=== PATIENT | female | born 1955 | race Caucasian/White ===

== ENCOUNTER → 2022-07-22 13:08 | Outpatient (CLI) | payer MEDICARE, SELFPAY | PROVIDERS: PCP Internal Medicine; Visit Provider Internal Medicine | DX: U07.1 COVID-19 (principal) | CPT/HCPCS: C9803; U0003; U0005 ==

== ENCOUNTER → 2023-04-29 16:55 | Outpatient (CLI) | payer MEDICARE, SELFPAY ==
[2023-04-29 20:01] LABS: Erythrocyte Sedimentation Rate 26 mm/hr (0-30)
[2023-04-29 20:03] LABS: Basophils % 0.5 % (0.1-2.0); Eosinophils # 0.2 K/mm3 (0.0-0.4); Eosinophils % 2.8 % (0.1-12.0); Hematocrit 39.8 % (37.0-47.0); Hemoglobin 12.7 g/dL (12.2-16.2); Lymphocytes # 3.1 K/mm3 (0.7-4.5); Mean Corpuscular HGB Conc 31.8 g/dL (31.8-35.4); Mean Corpuscular Hemoglobin 28.6 pg (27.0-31.2); Mean Corpuscular Volume 89.8 fl (81-99); Mean Platelet Volume 7.6 fl (7.4-10.4); Monocytes # 0.4 K/mm3 (0.1-1.0); Monocytes % 5.4 % (1.7-9.3); Neutrophils # 4.2 K/mm3 (1.8-7.8); Neutrophils % 52.3 % (37.0-80.0); Platelet Count 436 K/mm3 (142-424); Red Blood Count 4.43 M/mm3 (4.20-5.40)
[2023-04-29 20:32] LABS: Alanine Aminotransferase 43 U/L (12-78); Albumin Level 4.5 g/dl (3.5-5.0); Albumin/Globulin Ratio 1.6 (1.1-1.8); Alkaline Phosphatase 121 U/L (38-126); Anion Gap 16.2 mEq/L (5-15); Aspartate Amino Transferase 28 U/L (14-36); Bilirubin,Total 0.5 mg/dl (0.2-1.3); Blood Urea Nitrogen 16 mg/dl (7-17); Calcium 9.7 mg/dl (8.4-10.2); Carbon Dioxide 27 mmol/L (22.0-30.0); Chloride 103 mmol/L (98-107); Chol/HDL Ratio 4.9 (1-3.5); Cholesterol 306 mg/dl (140-200); Estimated Glomerular Filt Rate 71 ml/min (>60); GFR (African American) 86 ML/MIN (>60); Globulin 2.9 g/dL (1.3-3.2); Glucose 111 mg/dl (74-100); HDL Cholesterol 62 mg/dl (40-60); Potassium 5.2 mmoL/L (3.5-5.1); Sodium 141 mmol/L (136-145); Total Protein,Serum 7.4 g/dl (6.3-8.2); Triglycerides 211 mg/dl (30-150); VLDL Cholesterol 42 mg/dL (0-40)
[2023-04-29 20:43] LABS: Direct LDL Cholesterol 175.26 mg/dL (100-129)
== END ==
PROVIDERS: PCP Internal Medicine; Visit Provider Internal Medicine
DX: R03.0 Elevated blood-pressure reading, without diagnosis of hypertension (principal); Z00.00 Encounter for general adult medical examination without abnormal findings; M15.0 Primary generalized (osteo)arthritis; M79.7 Fibromyalgia; E78.2 Mixed hyperlipidemia
CPT/HCPCS: 80053; 80061; 85025; 85651

== ENCOUNTER → 2023-06-02 09:47 | Outpatient (CLI) | payer MEDICARE, SELFPAY ==
--- NOTE | 2023-06-02 09:51 | MM_ITS ---
PROCEDURE INFORMATION: Exam: MG Bilateral Screening 3D Mammography Exam date and time: 06/02/2023 9:43 AM Age: 67 years old Clinical indication: Screening. A cousin had breast cancer. TECHNIQUE: Imaging protocol: Bilateral Screening tomosynthesis and 2D mammography including computer-aided detection (CAD) when performed. COMPARISON: No relevant prior studies available.If prior mammograms are provided, I am happy to add an addendum. FINDINGS: MAMMOGRAPHY: Breast composition: There are scattered areas of fibroglandular density. Mass: No suspicious mass. Architectural distortion: None. Calcifications: No suspicious calcifications. Asymmetric density: None. Skin thickening: None. Axillary adenopathy: None. IMPRESSION: No mammographic evidence of malignancy. Annual screening is recommended unless otherwise clinically indicated. ASSESSMENT: BI-RADS Category 1: Negative
--- NOTE | 2023-06-02 10:29 | XR_ITS ---
FINAL REPORT TECHNIQUE: Bone densitometry calculations of the lumbar spine and left hip were obtained. CLINICAL HISTORY: SCREENING patient states she had a fusion , L4 looked small so did a wrist also FINDINGS: Using L1-4, the bone mineral density of the spine is 0.854 g/cm2, corresponding to T-score of -1.8. Using the left hip, the bone mineral density of the femoral neck is 0.525 g/cm2, corresponding to a T-score of -2.9. Using the right hip, the bone mineral density of the femoral neck is 0.615 g/cm2, corresponding to a T-score of -2.1. Using the 1/3 radius, the bone mineral density of the radius is 0.467 g/cm2, corresponding to a T-score of -3.8. NOTE: T-score: Standard deviation compared with peak bone mass of young adult mean. *Following the recommendations of the International Society of Bone densitometry, classification of hip BMD is based on the lower of two T-scores; total hip or femoral neck. IMPRESSION: Diminished bone mineral density consistent with osteopenia in the right hip and lumbar spine. Diminished bone mineral density consistent with osteoporosis in the 1/3 radius and left hip. FRAX was not reported because some of the T-scores are at or below-2.5. Reviewed, Interpreted and Dictated by Wojciech Anne MD Transcribed by Lexis Valencia Authenticated and [facility]
== END ==
PROVIDERS: PCP Internal Medicine; Visit Provider Internal Medicine
DX: Z12.31 Encounter for screening mammogram for malignant neoplasm of breast (principal); Z78.0 Asymptomatic menopausal state
CPT/HCPCS: 77063; 77067; 77080

== ENCOUNTER → 2023-06-10 16:12 | Outpatient (CLI) | payer MEDICARE, SELFPAY ==
--- NOTE | 2023-06-10 16:19 | XR_ITS ---
FINAL REPORT CLINICAL HISTORY: lt lower leg pain, osteoporosis FINDINGS: LEFT KNEE 3 views of the left knee were obtained. There is no acute fracture or dislocation. Visualized joint spaces are normally aligned. Soft tissues are unremarkable. There is an osteophyte projecting from the superior pole of the patella. There is a tiny exostosis on the anterior surface of the proximal tibial diaphysis. IMPRESSION: No acute bony abnormality. Reviewed, Interpreted and Dictated by Wojciech Anne MD Transcribed by Selin Broussard Authenticated and [facility]
--- NOTE | 2023-06-10 16:19 | XR_ITS ---
FINAL REPORT CLINICAL HISTORY: lt lower leg pain, osteoporosis COMPARISON: None FINDINGS: LEFT TIBIA FIBULA: There is no acute fracture or dislocation. The joint spaces are intact. There is no soft tissue abnormality. There is a healed fracture deformity of the proximal fibula. There is an orthopedic plate and screws bridging a remote fracture of the distal tibia. IMPRESSION: No acute fracture Reviewed, Interpreted and Dictated by Wojciech Anne MD Transcribed by Selin Broussard Authenticated and [facility]
--- NOTE | 2023-06-10 16:19 | XR_ITS ---
FINAL REPORT CLINICAL HISTORY: LOWER LEG PAIN, osteoporosis FINDINGS: LEFT ANKLE Three views demonstrate no acute fracture or dislocation. The visualized joint spaces are normally aligned. The soft tissues are unremarkable. There are screws in an orthopedic plate bridging a remote fracture of the distal tibia. There is a well-corticated density adjacent to the lateral malleolus that likely represents a remote fracture deformity. IMPRESSION: No acute bony abnormality. Reviewed, Interpreted and Dictated by Wojciech Anne MD Transcribed by Selin Broussard Authenticated and [facility]
== END ==
PROVIDERS: PCP Internal Medicine; Visit Provider Internal Medicine
DX: M25.562 Pain in left knee (principal); M79.662 Pain in left lower leg; M25.572 Pain in left ankle and joints of left foot; M81.0 Age-related osteoporosis without current pathological fracture
CPT/HCPCS: 73562; 73590; 73610

== ENCOUNTER 2023-07-21 08:23 | Day surgery (SDC) | payer MEDICARE, SELFPAY ==
[2023-07-20 13:05] VITALS: BMI 26.1
[2023-07-21 08:44] VITALS: BP 196/99; PULSE 88; RESP 16; TEMP 36.6; O2SAT 98
--- NOTE | 2023-07-21 08:58 | EXP.ANES.CKL ---
[facility] Disclaimer: The information contained in this section may have been updated after the patient was seen, as this information can be updated by other users. Medical History History of lower leg fracture Surgical History History of laminectomy History of tonsillectomy Family History Other No significant family history Social History (Updated 07/21/23 @ 08:43 by Connie Larios RN) Smoking Status: Never smoker alcohol intake: never substance use type: denies use current occupational status: retired and disabled Travel in the last 8 weeks: None [facility] Anesthesia Checklist Patient Identification Patient Identification: Arm Band Structural Data Admitted From: Home Planned Operative Procedure/s: colonoscopy Consent for Planned Operative Procedure(s) Verified: Yes Verified Documents: Surgical Consent and History and Physical NPO Status Verified Time NPO: 00:00 Additional verifications Anesthesia Reactions: No Airway Assessment Mallampati Score:: Class II C-Spine Mobility Assessed: Yes TMJ Mobility Assessed: Yes Dentition: Good Dentition Neurological Assessment Level of Consciousness: Awake and Alert Anesthesia Plan Anesthesia Risk discussed: Yes Anesthesia Plan: Verified ASA Class: II Anesthesia Type: MAC
[2023-07-21 09:00] VITALS: O2SAT 98
--- NOTE | 2023-07-21 09:42 | HMH.SCOPE ---
Procedure: Date: 07/21/23 Patient Date of :: 1955 Procedure Performed:: Colonoscopy with polypectomy Indications:: History of colon polyps Performing Provider:: Itz Clifford MD Referring Provider:: Dr. Cabrera Sedation:: Monitored anesthesia care Procedure:: After informed consent was obtained the patient was taken to the endoscopy suite. Sedation ensued after the patient was transferred to the left lateral decubitus position. Pulse, blood pressure, and oxygen saturation were monitored throughout the procedure. Digital rectal exam revealed no significant abnormality. The colonoscope was placed in position. The entire colon was evaluated. The colonoscope was carefully removed and the patient was transferred to recovery in stable condition. Please see findings and specimens below for detail. Findings:: Bowel preparation moderate Significant tortuosity Fairly profound spasticity/lack of relaxation (particularly within sigmoid colon) Polyps (see specimens) Specimens:: Hepatic flexure polyp (hot snare) Polyp at 20 cm (cold biopsy forceps) Recommendations:: Timing of repeat colonoscopy is pending pathology but likely be around 1-2 years with extended bowel preparation. Consider barium enema secondary to profound spasticity/lack of relaxation. Complications:: No immediate Estimated blood obtained (mL): 1 Colonoscopy Component Colonoscopy Component Was a colonoscopy performed during today's procedure?: Yes Recommended follow up colonoscopy of at least 10 years?: No If no, follow up colonoscopy recommended in ___ years?: (See above) Reason for not recommending >/= 10 yr follow-up interval?: (See above)
[2023-07-21 09:43] VITALS: BP 85/50; PULSE 67; RESP 16; TEMP 36.6; O2SAT 95
[2023-07-21 09:53] VITALS: BP 99/51; PULSE 64; RESP 16; O2SAT 98
[2023-07-21 10:03] VITALS: BP 133/81; PULSE 61; RESP 16; O2SAT 99
[2023-07-21 10:13] VITALS: BP 137/82; PULSE 64; RESP 16; TEMP 36.6; O2SAT 99
== END 2023-07-21 10:20 | disposition home or self-care (01) ==
PROVIDERS: PCP Internal Medicine; Visit Provider Surgery
PROC: 0DJD8ZZ Inspection of Lower Intestinal Tract, Via Natural or Artificial Opening Endoscopic (ICD-10-PCS; CPT 45380; principal; 2023-07-21 09:30)
DX: Z12.11 Encounter for screening for malignant neoplasm of colon (principal); Z86.010 Personal history of colon polyps; K56.2 Volvulus; D12.3 Benign neoplasm of transverse colon; D12.5 Benign neoplasm of sigmoid colon
CPT/HCPCS: 45380; 45385; 88305

== ENCOUNTER 2023-10-16 07:42 | Outpatient (CLI) | payer MEDICARE, SELFPAY ==
--- NOTE | 2023-10-16 07:42 | FL_ITS ---
FINAL REPORT CLINICAL HISTORY: history of polyps - unsuccessful colonoscopy Fluor time 1:58min 83.75 mGy FINDINGS: BARIUM ENEMA HISTORY: Incomplete colonoscopy. PROCEDURE: Single-contrast barium was introduced by gravity drip. Spot and overhead films were obtained. FINDINGS: Sort Worker film is unremarkable. Retained stool limits mucosal detail. No constricting or obstructing lesions are identified to the level of the cecum. There is sigmoid diverticulosis without evidence of diverticulitis. IMPRESSION: No constricting or obstructing lesions to the level of the cecum. Sigmoid diverticulosis. Films reviewed , interpreted and dictated by Dr. Arenas Transcribed by Vj Rivers PA-C. Reviewed, Interpreted and Dictated by Shane Arenas III, MD Transcribed by ROBERT Ceja Authenticated and [facility]
[2023-10-16] MEDS: BARIUM SULFATE(E-Z-AC);750ML BOTTLE 750 ML PO (09:14)
== END 2023-10-16 23:59 ==
LOC: RAD 07:42
PROVIDERS: PCP Internal Medicine; Visit Provider Surgery
DX: Z86.010 Personal history of colon polyps (principal)
CPT/HCPCS: 74270

== ENCOUNTER 2025-07-17 12:30 | Outpatient (CLI) | payer MEDICARE, SELFPAY ==
[2025-07-17 17:59] LABS: Hematocrit 39.2 % (37.0-47.0); Hemoglobin 12.5 g/dL (12.2-16.2); Immature Granulocytes % 0.3 %; Mean Corpuscular HGB Conc 31.9 g/dL (31.8-35.4); Mean Corpuscular Hemoglobin 28.7 pg (27.0-31.2); Mean Corpuscular Volume 89.9 fl (81-99); Nucleated Red Blood Cells % 0 %; Platelet Count 370 K/mm3 (142-424); Red Blood Count 4.36 M/mm3 (4.20-5.40); Red Cell Distribution Width-SD 42.0 fL; White Blood Count 7.3 K/mm3 (4.8-10.8)
[2025-07-17 19:03] LABS: Albumin Level 3.9 g/dl (3.5-5.0); Chloride 102 mmol/L (98-107); Potassium 4.8 mmoL/L (3.5-5.1); Sodium 140 mmol/L (136-145)
[2025-07-17 19:05] LABS: Alanine Aminotransferase 20 U/L (12-78); Anion Gap 15.8 mEq/L (5-15); Aspartate Amino Transferase 22 U/L (14-36); Carbon Dioxide 27 mmol/L (22.0-30.0)
[2025-07-17 19:06] LABS: Albumin/Globulin Ratio 1.3 (1.1-1.8); Alkaline Phosphatase 105 U/L (38-126); Bilirubin,Total 0.4 mg/dl (0.2-1.3); Calcium 9.3 mg/dl (8.4-10.2); Cholesterol 271 mg/dl (140-200); Globulin 3.0 g/dL (1.3-3.2); Glucose 113 mg/dl (74-100); HDL Cholesterol 47 mg/dl (40-60); Total Protein,Serum 6.9 g/dl (6.3-8.2); Triglycerides 206 mg/dl (30-150)
[2025-07-17 19:12] LABS: Blood Urea Nitrogen 15 mg/dl (7-17); Creatinine,Serum 0.70 mg/dl (0.52-1.04); Estimated Glomerular Filt Rate 83 ml/min (>60); GFR (African American) 100 ML/MIN (>60)
== END 2025-07-17 23:59 ==
LOC: LAB.DROPOF 07-18 02:01
PROVIDERS: PCP Internal Medicine; Visit Provider Internal Medicine
DX: E78.5 Hyperlipidemia, unspecified (principal); I10 Essential (primary) hypertension
CPT/HCPCS: 80053; 80061; 85025

== ENCOUNTER 2025-08-02 13:22 | Outpatient (CLI) | payer MEDICARE, SELFPAY ==
--- NOTE | 2025-08-02 13:30 | MM_ITS ---
PROCEDURE INFORMATION: Exam: MG Bilateral Screening 3D Mammography Exam date and time: 08/02/2025 1:29 PM Age: 70 years old Clinical indication: Screening exam TECHNIQUE: Imaging protocol: Bilateral Screening tomosynthesis and 2D mammography including computer-aided detection (CAD) when performed. COMPARISON: MG MM DIG SCREENING MAMM BI W/CAD 06/02/2023 9:43 AM FINDINGS: MAMMOGRAPHY: Breast composition: There are scattered areas of fibroglandular density. Mass: No suspicious masses. Architectural distortion: None. Calcifications: No suspicious calcifications. Asymmetric density: None. Skin thickening: None. Axillary adenopathy: None. IMPRESSION: No mammographic evidence of malignancy. Annual screening is recommended unless otherwise clinically indicated. ASSESSMENT: BI-RADS Category 1: Negative.
== END 2025-08-02 23:59 | disposition home or self-care (01) ==
LOC: RAD 13:23
PROVIDERS: PCP Internal Medicine; Visit Provider Internal Medicine
DX: Z12.31 Encounter for screening mammogram for malignant neoplasm of breast (principal); R92.323 Mammographic fibroglandular density, bilateral breasts
CPT/HCPCS: 77063; 77067